=== PATIENT | female | born 1965 | race Hispanic/Latino ===

== ENCOUNTER 2025-01-28 18:28 | Emergency (ER) | payer SELFPAY ==
[~2025-01-28] VITALS: Ht 152.4 cm; Wt 67.1 kg
[~2025-01-28 18:28] MED LIST: FAMOTIDINE20 MG PO; MAALOX MAXIMUM355 ML PO; No Home Medications; ONDANSETRON ODT4 MG PO
[2025-01-28] MEDS: CEFTRIAXONE 1 GM VIAL IV ONE (18:54)
[2025-01-28] MEDS: SODIUM CHLORIDE 0.9% 1000ML 1,000 ML IV ONE (18:59)
[2025-01-28] MEDS: HYDROCODONE/APAP 5MG-325MG TAB PO ONE (18:59)
[2025-01-28] MEDS ORDERED: METFORMIN HCL500 MG PO (20:49)
[2025-01-28] MEDS ORDERED: PYRIDIUM100 MG PO (20:49)
[2025-01-28] MEDS ORDERED: CEFUROXIME250 MG PO (20:49)
[2025-01-28 20:59] VITALS: PULSE 75; RESP 18; TEMP 97.8
[2025-01-28 21:22] VITALS: BP 140/66; PULSE 75; RESP 18; TEMP 97.8; O2SAT 97
== END 2025-01-28 20:59 | disposition home or self-care (01) ==
LOC: FSED 18:32
DX: R30.0 Dysuria (principal); N30.91 Cystitis, unspecified with hematuria; R73.9 Hyperglycemia, unspecified
CPT/HCPCS: 74176; 80048; 80076; 81003; 85025; 99284; J0696; J7030